=== PATIENT | male | born 1975 | race African-American/Black ===

== ENCOUNTER 2019-12-16 17:51 | Inpatient (IN) | payer OTHER ==
[~2019-12-16] VITALS: Ht 182.9 cm; Wt 98.2 kg
[~2019-12-16 17:51] MED LIST: ANGIOMAX 250 MG VIAL IV ONE; IODIXANOL 320MG/ML 100ML BTL IV ONE; LIDOCAINE 2%HCL (LOCAL ANESTH.) INJ 20ML MDV ONE; MIDAZOLAM HCL 1MG/1ML-2 ML VIAL ONE; SODIUM CHL 0.9% 50 ML ONE; VERAPAMIL 2.5MG/ML INJ 2ML VIAL IV ONE; fentaNYL CITRATE 100 MCG/2 ML VL ONE
[2019-12-16] MEDS ORDERED: EPTIFIBATIDE INJ (2MG/ML) 10ML VIAL IV ONE (18:01)
[2019-12-16] MEDS ORDERED: TICAGRELOR 90 MG TAB ONE (18:06)
[2019-12-16] MEDS ORDERED: IODIXANOL 320MG/ML 100ML BTL IV ONE (18:14)
[2019-12-16] MEDS ORDERED: SODIUM CHL 0.9% 50 ML ONE (18:35)
[2019-12-16] MEDS ORDERED: ANGIOMAX 250 MG VIAL IV ONE (18:35)
[2019-12-16] MEDS ORDERED: MORPHINE SULF INJ 2 MG/ML SYRINGE 1ML IV PRN (18:45)
[2019-12-16] MEDS ORDERED: NITROGLYCERIN 0.4 MG SL TAB SL PRN (18:45)
[2019-12-16] MEDS ORDERED: DOCUSATE SOD 100 MG CAP PO PRN (19:00)
[2019-12-16] MEDS ORDERED: ALPRAZolam 0.25 MG TAB PO PRN (19:00)
[2019-12-16] MEDS ORDERED: ONDANSETRON HCL 4 MG/2 ML VIAL IV PRN (19:00)
[2019-12-16] MEDS ORDERED: TEMAZEPAM 15 MG CAP PO ONE (20:30)
[2019-12-16] MEDS: TICAGRELOR 90 MG TAB PO SCH (21:44)
[2019-12-16] MEDS: METOPROLOL TARTRATE 25 MG TAB PO SCH (21:44)
[2019-12-16] MEDS: PANTOPRAZOLE 40 MG TAB PO SCH (21:44)
[2019-12-16] MEDS ORDERED: ATORVASTATIN 20 MG TAB PO SCH (22:00)
[2019-12-16 22:02] VITALS: BP 112/63
[2019-12-17] MEDS ORDERED: ATOR1TAB PO (01:20)
[2019-12-17] MEDS: HYDROcodone-ACET 5/325MG TAB PO PRN ×2 (04:36→10:22)
[2019-12-17 05:38] VITALS: BP 106/62
[2019-12-17 08:38] VITALS: BP 101/70
[2019-12-17] MEDS: METOPROLOL TARTRATE 25 MG TAB PO SCH (10:00)
[2019-12-17] MEDS ORDERED: ASPirin 81 mg TAB PO SCH (10:00)
[2019-12-17] MEDS: PANTOPRAZOLE 40 MG TAB PO SCH (10:23)
[2019-12-17] MEDS: TICAGRELOR 90 MG TAB PO SCH (10:31)
[2019-12-17 13:00] VITALS: BP 113/60
[2019-12-17 14:36] VITALS: BP 113/60
== END 2019-12-17 16:00 | disposition home or self-care (01) | DRG 247 ==
LOC: CATH 1 17:51 → TELE-CENTR 17:52
PROVIDERS: ADMIT Internal Medicine Nephrology; ATTEND Internal Medicine Nephrology
PROC: 027135Z Dilation of Coronary Artery, Two Arteries with Two Drug-eluting Intraluminal Devices, Percutaneous Approach (ICD-10-PCS; principal; 2019-12-16)
PROC: 02C03ZZ Extirpation of Matter from Coronary Artery, One Artery, Percutaneous Approach (ICD-10-PCS; 2019-12-16)
PROC: B240ZZ3 Ultrasonography of Single Coronary Artery, Intravascular (ICD-10-PCS; 2019-12-16)
PROC: 4A023N7 Measurement of Cardiac Sampling and Pressure, Left Heart, Percutaneous Approach (ICD-10-PCS; 2019-12-16)
PROC: B211YZZ Fluoroscopy of Multiple Coronary Arteries using Other Contrast (ICD-10-PCS; 2019-12-16)
PROC: B215YZZ Fluoroscopy of Left Heart using Other Contrast (ICD-10-PCS; 2019-12-16)
PROC: B241ZZ3 Ultrasonography of Multiple Coronary Arteries, Intravascular (ICD-10-PCS; 2019-12-16)
PROC: 3E073PZ Introduction of Platelet Inhibitor into Coronary Artery, Percutaneous Approach (ICD-10-PCS; 2019-12-16)
DX: I21.09 ST elevation (STEMI) myocardial infarction involving other coronary artery of anterior wall (principal); I10 Essential (primary) hypertension; E78.5 Hyperlipidemia, unspecified; I25.10 Atherosclerotic heart disease of native coronary artery without angina pectoris; I25.2 Old myocardial infarction; Z82.49 Family history of ischemic heart disease and other diseases of the circulatory system; Z79.899 Other long term (current) drug therapy; Z79.82 Long term (current) use of aspirin; Z88.0 Allergy status to penicillin
CPT/HCPCS: 99152; 99153; C1874; G0378; J2250; Q9967